=== PATIENT | female | born 1960 | race Caucasian/White ===

== ENCOUNTER 2017-01-27 11:33 | Emergency (ER) | payer BC ==
[2017-01-27 11:40] VITALS: BP 150/74; BMI 30.2
[2017-01-27 12:06] LABS: BASOPHILS % (AUTO) 0.4 % (0.2-1.0); EOSINOPHILS # (AUTO) 0.2 x10^3/uL (0.0-0.2); EOSINOPHILS % (AUTO) 2.1 % (0.9-2.9); HEMATOCRIT 40.5 % (36.0-47.0); HEMOGLOBIN 13.7 g/dL (12.0-16.0); LYMPHOCYTES # (AUTO) 1.3 X10^3/uL (1.3-2.9); LYMPHOCYTES % (AUTO) 14.3 % (21.0-51.0); MEAN CORPUSCULAR HEMOGLOBIN 30.6 pg (27.0-34.0); MEAN CORPUSCULAR HGB CONC 33.8 g/dL (33.0-35.0); MEAN CORPUSCULAR VOLUME 90.5 fL (80.0-100.0); MEAN PLATELET VOLUME 9.7 fL (7.4-11.0); MONOCYTES # (AUTO) 0.5 x10^3/uL (0.3-0.8); MONOCYTES % (AUTO) 5.8 % (0.0-13.0); NEUTROPHILS # (AUTO) 6.8 x10^3/uL (2.2-4.8); NEUTROPHILS % (AUTO) 77.4 % (42.0-75.0); PLATELET COUNT 187 X10^3/uL (150.0-450.0); RED BLOOD COUNT 4.48 X10^6/uL (3.5-5.4); RED CELL DISTRIBUTION WIDTH 13.2 % (11.6-16.5); WHITE BLOOD COUNT 8.8 X10^3/uL (3.6-10.0)
--- NOTE | 2017-01-27 12:06 | DR.GENAD ---
HPI - PCP Primary Care Physician: MAGDALENE - HPI Comment HPI Comment: PATIENT HAD RIGHT ROTATRY CUFF REPAIR AND IS IS RESTING MOST OF THE TIME. STATED HAVING INCREASING SOB WITH CHEST PAIN. SHE IS COUGHOIING, PRODUCTIVE WITH YELLOW SPUTUM. NO FEVER. GETTING WORSE. - Complaint/Symptoms Chief Complaint Doctors Comments: INCREASING SOB AND CHEST PAIN POST SURGERY TIME ONE DAY. Chief Complaint:: PT C/O DIFFICULTY BREATHING. PT STATES SHE JUST RECENTLY HAD SURGERY ( PAST SUNDAY). PT STATES LAST NIGHT SHE STARTED WITH THE DIFFICULTY BREATHING AND FEELING VERY CHILLED. PT STATES SHE THOUGHT IT MAY BE HER MEDICATIONS, SO SHE QUIT TAKING HER MEDICAITONS MUCH. - Nurses notes reviewed Nurses Notes Review: Yes - Source History Provided: Patient - Mode of Arrival Mode of Arrival: Ambulatory - Timing Onset of Chief Complaint: 01/26/17 Came on: Suddenly - Duration Duration: Constant Duration: Days - Severity Severity: Moderate PMH - PMH Past Medical History: No Past Surgical History: Yes Surgical History: Cholecystectomy, Hysterectomy Past Surgical History Comment: BACK AND NECK SURGERY, SHOULDER SURGERY - Family History History of Family Medical Conditions: Yes Family Medical History: Hypertension - Social History Does any household member use tobacco: No Alcohol Use: None Do you use any recreational Drugs:: No Lives With: Family Lives Where: Home - infectious screening In the last 2 months have you had wt loss of >10#?: NO Have you had fever, night sweats or hemotysis?: No Have you traveled outside the country in the last 6 months?: No Isolation: Standard ROS - Review of Systems Constitutional: No Symptoms Reported, Weakness, Fatigue. negative: Chills, Diaphoresis, Fever, Malaise Eyes: No Symptoms Reported, Discharge. negative: Eye Pain ENTM: No Symptoms Reported Respiratoy: Short of Breath, Stridor, Wheezing, Hemoptysis Cardiovascular: Chest Pain, Palpitations Gastrointestinal/Abdominal: Abdominal Pain (POST SURGERY), Nausea Genitourinary: negative: Dysuria, Frequency, Hematuria Neurological: Weakness. negative: Headache, Dizziness Musculoskeletal: Muscle Pain Integumentary: Change in Color (RIGHT SHOULDER SWOLLEN AND BRUISED.) Hematologic/Lymphatic: No Symptoms Reported Endocrine: No Symptoms Reported All Other Systems: Reviewed and Negative PE - Vital Signs Vitals: Temperature 98.5 F Pulse Rate 90 Respiratory Rate 24 Blood Pressure 150/74 O2 Sat by Pulse Oximetry 94 - General Limitations: No Limitations General Appearance: Alert, In Distress - Head Head Exam: Normal Inspection - Eyes Eye exam: Normal Appearance - ENT ENT Exam: Normal External Ear Exam External Ear Exam: Normal External Inspection TM/Canal Exam: Bilateral Normal Nose Exam: Normal Nose Exam Mouth Exam: Normal Inspection Throat Exam: Normal Inspection - Neck Neck Exam: Trachea Midline - Chest Chest Inspection: Symmetric Chest Wall Rise - Respiratory Respiratory Exam: Normal Lung Sounds Bilat Respiratory Exam: Bilateral Wheezing, Bilateral Rhonchi, Upper Rhonchi, Lower Wheezing, Lower Rhonchi - Cardiovascular Cardiovascular Exam: Regular Rate, Normal Rhythm, Normal Heart Sounds - Abdominal Exam Abdominal Exam: Normal Bowel Sounds, Soft. negative: Tenderness - Extremities Extremities Exam: Tenderness (RT SHOULDER.), Joint Swelling (RT SHOULDER.). negative: Full ROM (ROM NOT INTACT.) - Back Back Exam: Normal Inspection - Neurologic Neurological Exam: Alert, Oriented X3, CN II-XII Intact, Normal Gait, Reflexes Normal. negative: Motor Sensory Deficit - Psychiatric Psychiatric Exam: Anxious - Skin Skin Exam: Erythema MDM - Additional Information Additional Information Obtained From: Family - Differential Diagnosis Differential Diagnosis: PNEUMONIA, PULMONARY EMBILISM, DVT, BRONCHITIS Course - Treatment Treatment: SEE ORDERS. MED FOR PAIN IV IN ED. OXYGEN IN ED, SOB IMPROVED. - Reevaluation 1st: Improved - Education/Counseling Education/Counseling: Patient, Family, Education Educated On: Treatment, Diagnosis, Needs for Follow Up ROR - Labs Reviewed Laboratory Results Reviewed?: Yes Result Diagrams: 01/27/17 11:56 01/27/17 11:56 Laboratory: WBC 8.8 X10^3/uL (3.6-10.0) 01/27/17 11:56 RBC 4.48 X10^6/uL (3.5-5.4) 01/27/17 11:56 Hgb 13.7 g/dL (12.0-16.0) 01/27/17 11:56 Hct 40.5 % (36.0-47.0) 01/27/17 11:56 MCV 90.5 fL (80.0-100.0) 01/27/17 11:56 MCH 30.6 pg (27.0-34.0) 01/27/17 11:56 MCHC 33.8 g/dL (33.0-35.0) 01/27/17 11:56 RDW 13.2 % (11.6-16.5) 01/27/17 11:56 Plt Count 187 X10^3/uL (150.0-450.0) 01/27/17 11:56 MPV 9.7 fL (7.4-11.0) 01/27/17 11:56 Neut % 77.4 % (42.0-75.0) H 01/27/17 11:56 Lymph % 14.3 % (21.0-51.0) L 01/27/17 11:56 [place] % 5.8 % (0.0-13.0) 01/27/17 11:56 Eos % 2.1 % (0.9-2.9) 01/27/17 11:56 Baso % 0.4 % (0.2-1.0) 01/27/17 11:56 Neut # 6.8 x10^3/uL (2.2-4.8) H 01/27/17 11:56 Lymph # 1.3 X10^3/uL (1.3-2.9) 01/27/17 11:56 [place] # 0.5 x10^3/uL (0.3-0.8) 01/27/17 11:56 Eos # 0.2 x10^3/uL (0.0-0.2) 01/27/17 11:56 Baso # 0.0 X10^3/uL (0.0-0.1) 01/27/17 11:56 Absolute Nucleated RBC 0.0 /100WBC 01/27/17 11:56 D-Dimer 466 ng/mL (0-400) H* 01/27/17 11:56 Sodium 134 mmol/L (136-145) L 01/27/17 11:56 Corrected Sodium TNP 01/27/17 11:56 Potassium 3.5 mmol/L (3.5-5.1) 01/27/17 11:56 Chloride 100 mmol/L (98-107) 01/27/17 11:56 Carbon Dioxide 30.8 mmol/L (21-32) 01/27/17 11:56 BUN 14 mg/dL (7-18) 01/27/17 11:56 Creatinine 0.98 mg/dL (0.55-1.02) 01/27/17 11:56 Est GFR (MDRD) Af Amer > 60 (>60) 01/27/17 11:56 Est GFR (MDRD) Non-Af > 60 (>60) 01/27/17 11:56 Glucose 87 mg/dL (65-99) 01/27/17 11:56 Calcium 8.7 mg/dL (8.5-10.1) 01/27/17 11:56 Corrected Calcium TNP 01/27/17 11:56 Total Bilirubin 0.60 mg/dL (0.2-1.0) 01/27/17 11:56 AST 37 Units/L (15-37) 01/27/17 11:56 ALT 52 Units/L (12-78) 01/27/17 11:56 Alkaline Phosphatase 132 Units/L (46-116) H 01/27/17 11:56 Creatine Kinase 247 Units/L (26-192) H 01/27/17 11:56 CK-MB (CK-2) 1.7 ng/mL (0-4.0) 01/27/17 11:56 CK/CKMB % Calc 0.7 % (<4) 01/27/17 11:56 Troponin I < 0.02 ng/mL (0-1.5) 01/27/17 11:56 B-Natriuretic Peptide 121 pg/mL (0-79) H 01/27/17 11:56 Total Protein 7.5 g/dL (6.4-8.2) 01/27/17 11:56 Albumin 3.6 g/dL (3.4-5.0) 01/27/17 11:56 Globulin 3.9 g/dL (2.5-4.5) 01/27/17 11:56 Albumin/Globulin Ratio 0.9 Ratio (1.1-2.1) L 01/27/17 11:56 Specimen Type Clean catch urine 01/27/17 12:28 Urine Color Yellow (YELLOW) 01/27/17 12:28 Urine Appearance Clear (CLEAR) 01/27/17 12:28 Urine pH 8.0 (5.0 - 8.0) 01/27/17 12:28 Ur Specific [place] 1.010 (1.000-1.030) 01/27/17 12:28 Urine Protein Negative (NEGATIVE) 01/27/17 12:28 Urine Glucose (UA) Negative (NEGATIVE) 01/27/17 12:28 Urine Ketones Negative (NEGATIVE) 01/27/17 12:28 Urine Occult Blood Negative (NEGATIVE) 01/27/17 12:28 Urine Nitrite Negative (NEGATIVE) 01/27/17 12:28 Urine Bilirubin Negative (NEGATIVE) 01/27/17 12:28 Urine Urobilinogen Normal (NORMAL) 01/27/17 12:28 Ur Leukocyte Esterase Negative (NEGATIVE) 01/27/17 12:28 Urine RBC None seen /HPF (NEGATIVE) 01/27/17 12:28 Urine WBC Rare /HPF (NEGATIVE) 01/27/17 12:28 Ur Squamous Epith Cells Rare /HPF (NEGATIVE) 01/27/17 12:28 Amorphous Sediment Trace /HPF (NEGATIVE) 01/27/17 12:28 Urine Bacteria Negative /HPF (NEGATIVE) 01/27/17 12:28 Ur Culture Indicated? No/not indicated 01/27/17 12:28 - XRAY XRAY Interpreted by: Radiologist XRAY Findings: REPORT DISCUSS WITH PATIENT AND HUDBAND. - EKG Rhythm: NSR (EKG NOTED.) - Diagnosis Discharge Problem: Chest pain, SOB (shortness of breath), Bronchitis - Discharge Plan Disposition: 01 HOME, SELF-CARE Condition: Stable Prescriptions: Amoxicillin [Amoxil 875 mg] 875 mg PO TID #30 tab Benzonatate [TESSALON PERLES *] 200 mg PO TID PRN #30 cap PRN Reason: Cough - Follow ups/Referrals Follow ups/Referrals: [facility] [STAFF PHYSICIAN] - 3 days - Instructions Instructions: Chest Pain Observation, Acute Bronchitis Additional Instructions: RETURN TO ED IF WORSE.
[2017-01-27] MEDS ORDERED: ZOFRAN INJ 4 MG VIAL ONE (12:19)
[2017-01-27] MEDS ORDERED: DEMEROL INJ ONE (12:19)
[2017-01-27] MEDS ORDERED: ZOFRAN INJ 4 MG VIAL IVP ONE (12:19)
[2017-01-27] MEDS ORDERED: DEMEROL INJ IVP ONE (12:19)
[2017-01-27 12:25] LABS: ALANINE AMINOTRANSFERASE 52 Units/L (12-78); ALBUMIN 3.6 g/dL (3.4-5.0); ALKALINE PHOSPHATASE 132 Units/L (46-116); ASPARTATE AMINO TRANSFERASE 37 Units/L (15-37); BLOOD UREA NITROGEN 14 mg/dL (7-18); CALCIUM 8.7 mg/dL (8.5-10.1); CARBON DIOXIDE 30.8 mmol/L (21-32); CHLORIDE 100 mmol/L (98-107); CREATININE 0.98 mg/dL (0.55-1.02); GLUCOSE 87 mg/dL (65-99); SODIUM 134 mmol/L (136-145); TOTAL PROTEIN 7.5 g/dL (6.4-8.2); eGFR BLACK RACES > 60 (>60); eGFR NON BLACK RACES > 60 (>60)
[2017-01-27 12:34] LABS: BILIRUBIN,URINE NEGATIVE (NEGATIVE); BLOOD/HEMOGLOBIN,URINE NEGATIVE (NEGATIVE); GLUCOSE, URINE NEGATIVE (NEGATIVE); KETONES,URINE NEGATIVE (NEGATIVE); LEUKOCYTE ESTERASE ,URINE NEGATIVE (NEGATIVE); NITRITES,URINE NEGATIVE (NEGATIVE); PROTEIN,URINE NEGATIVE (NEGATIVE); UROBILINOGEN,URINE NORMAL (NORMAL)
[2017-01-27 12:50] LABS: B-TYPE NATRIURETIC PEPTIDE 121 pg/mL (0-79)
[2017-01-27 12:51] LABS: AMORPHOUS SEDIMENT,UR TRACE /HPF (NEGATIVE); APPEARANCE,URINE CLEAR (CLEAR); BACTERIA,URINE NEGATIVE /HPF (NEGATIVE); COLOR,URINE YELLOW (YELLOW); RBC,URINE NONE SEEN /HPF (NEGATIVE); SQUAMOUS EPITHELIAL CELL,UR RARE /HPF (NEGATIVE)
[2017-01-27 12:59] LABS: CKMB % 0.7 % (<4); CREATINE KINASE 247 Units/L (26-192); CREATINE KINASE MB 1.7 ng/mL (0-4.0); TROPONIN I < 0.02 ng/mL (0-1.5)
[2017-01-27 13:12] LABS: D DIMER 466 ng/mL (0-400)
[2017-01-27] MEDS ORDERED: NS 100 ML IV 100 ML IV ONE (14:02)
--- NOTE | 2017-01-27 14:13 | RAD ---
HISTORY: Shortness of breath Study: AP chest obtained 11:52 a.m. Comparison: October 12, 2013 Findings: The trachea is midline . There is no widening or shift of mediastinum. The cardiac silhouette appear s within normal limits. The costophrenic angles are sharp and both diaphragms are adequately maintai carmelo. The lungs are adequately aerated. A plate and multiple screws internally fixates the lower cerv ical spine anteriorly. There is no evidence of active inflammatory disease. IMPRESSION: 1. Heart normal size lungs clear. No significant change since the previous study. Reported By:
--- NOTE | 2017-01-27 15:31 | CT ---
CT CHEST WITH CONTRAST CLINICAL HISTORY: Chest pain. TECHNIQUE: Axial images of the chest were obtained with administration of intravenous contrast mater ial. Coronal, sagittal reformats also obtained and reviewed COMPARISON: None FINDINGS: Evaluation of the pulmonary arterial branches at the lung bases is degraded by motion artifact. Ther e is no evidence of central embolus or embolus up to the level of segmental branches. Subsegmental, specifically left lung base embolus not excluded. There is left lung base atelectasis demonstrated. No definite evidence of effusions. A small pulmonary nodule in the right middle lobe measuring 2 millimeters. No confluent infiltrates. No adenopathy in the mediastinum. No acute aortic process. Included upper abdominal organs evaluation is grossly unremarkable. Status post cholecystectomy. Degenerative disc disease thoracic spine IMPRESSION: No definite central embolus up to the level segmental branches. The subsegmental pulmonary arterial branches evaluation limited by respiratory motion artifact at t he lung bases. Small left lower lobe subsegmental emboli not excluded based on this examination. There is mild atelectasis at the left lung base.. Reported By:
== END 2017-01-27 16:24 | disposition home or self-care (01) ==
LOC: ER 12:11
DX: J40 Bronchitis, not specified as acute or chronic (principal); R07.89 Other chest pain; R06.02 Shortness of breath
CPT/HCPCS: 36415; 71010; 71275; 80053; 81001; 82550; 82553; 83880; 84484; 85025; 85378; 87040; 93005; 93010; 96365; 96374; 96375; 99283; A4222; J2175; J2405